=== PATIENT | male | born 1975 | race Caucasian/White ===

== ENCOUNTER → 2017-04-02 | Outpatient (CLI) | payer BC ==
--- NOTE | 2017-04-02 16:20 | RAD ---
Bilateral knee radiographs History: Bilateral knee pain and weakness for greater than 2 months. Comparison: None. Findings: AP and lateral views of the right knee. Evaluation for acute traumatic injury is limited by lack of third view. No acute fracture or dislocation is identified. There is evidence of minimal medial compartment degeneration with peaking of tibial eminence. No joint effusion is identified. AP and lateral views of the left knee. Evaluation for acute traumatic injury is limited by lack of third view. No acute fracture or dislocation is identified. No significant degeneration is seen. No joint effusion is identified. Impression: 1. No acute osseous abnormality identified in either knee. 2. Minimal medial compartment degeneration of the right knee.
== END | disposition home or self-care (01) ==
LOC: DXRADRC 10:01
PROVIDERS: ATTEND Physician Assistant
DX: M17.0 Bilateral primary osteoarthritis of knee (principal)
CPT/HCPCS: 73560

== ENCOUNTER → 2018-06-07 | Outpatient (CLI) | payer OTHER, BC ==
--- NOTE | 2018-06-07 14:54 | RAD ---
Left knee, 3 views, 06/07/2018: HISTORY: Knee injury No fracture or dislocation is identified. The knee joint space is well maintained. No large joint effusion is seen. IMPRESSION: No acute left knee abnormality is detected. Electronically signed by: Lake Sharp MD (06/07/2018 2:51 PM) [facility]
== END | disposition home or self-care (01) ==
LOC: PMG 11:13
PROVIDERS: ATTEND Family Medicine
DX: M17.0 Bilateral primary osteoarthritis of knee (principal)
CPT/HCPCS: 73562

== ENCOUNTER → 2018-12-31 | Outpatient (CLI) | payer BC, OTHER ==
[2018-12-31 13:13] LABS: BASO % 0 % (0-3); EOS % 0 % (0-3); HEMOGLOBIN 16.3 g/dL (13.0-17.5); LYMPH # 1.7 x10^3/uL (1.0-4.8); LYMPH % 29 % (24-48); MEAN CORPUSCULAR HEMOGLOBIN 31 pg (25-35); MEAN CORPUSCULAR HGB CONC 35 g/dL (31-37); MEAN CORPUSCULAR VOLUME 88 fL (79-100); MONO # 0.5 x10^3/uL (0.0-1.1); MONO % 8 % (0-9); NEUT # 3.5 x10^3uL (1.8-7.7); NEUT % 62 % (31-73); PLATELET COUNT 212 x10^3/uL (140-400); RED BLOOD COUNT 5.35 x10^6/uL (4.30-5.70); RED CELL DISTRIBUTION WIDTH 12.9 % (11.5-14.5); WHITE BLOOD COUNT 5.6 x10^3/uL (4.0-11.0)
[2018-12-31 13:15] LABS: ALBUMIN 3.8 g/dL (3.4-5.0); CALCIUM 9.1 mg/dL (8.5-10.1); CREATININE 1.1 mg/dL (0.7-1.3); GFR 72.4; POTASSIUM 4.2 mmol/L (3.5-5.1); TOTAL BILIRUBIN 1.4 mg/dL (0.2-1.0); TOTAL PROTEIN 7.7 g/dL (6.4-8.2)
== END | disposition home or self-care (01) ==
LOC: PMG 12:15
PROVIDERS: ATTEND Family Medicine
DX: R10.11 Right upper quadrant pain (principal); R07.9 Chest pain, unspecified
CPT/HCPCS: 36415; 80053; 80061; 82553; 84484; 85025

== ENCOUNTER → 2019-01-07 | Outpatient (CLI) | payer BC ==
--- NOTE | 2019-01-07 13:03 | RAD ---
EXAM: Abdomen sonogram. HISTORY: Right upper quadrant pain. TECHNIQUE: Sonographic imaging of the abdomen was performed. COMPARISON: The exam is limited due to body habitus. FINDINGS: There is hepatic steatosis. No focal hepatic lesion is seen. The gallbladder is unremarkable. The common bile duct is normal in caliber. The right kidney is prominent in size, measuring 14.8 cm [id number]. The pancreas and inferior cava are obscured due to bowel gas. The aorta is not assessed. IMPRESSION: 1. Hepatic steatosis. 2. Prominent right kidney, within appropriate limits for patient body habitus. 3. Obscured midline structures due to body habitus. Electronically signed by: Sobeida Cronin MD (01/07/2019 1:00 PM) [facility]
== END | disposition home or self-care (01) ==
LOC: US 09:44
PROVIDERS: ATTEND Family Medicine
DX: K76.0 Fatty (change of) liver, not elsewhere classified (principal)
CPT/HCPCS: 76705